=== PATIENT | female | born 1945 ===

== ENCOUNTER 2019-05-07 13:53 | Emergency (ER) | payer OTHER ==
[~2019-05-07] VITALS: Ht 152.4 cm; Wt 82.6 kg
[~2019-05-07 13:53] MED LIST: BIOTIN1 MG PO; CRESTOR5 MG PO
[2019-05-07] MEDS ORDERED: COZAAR25 MG (14:22)
[2019-05-07] MEDS ORDERED: NEURONTIN600 M1 (14:22)
[2019-05-07] MEDS ORDERED: ASPIR 8181 MG (14:22)
== END 2019-05-07 21:53 | disposition home or self-care (01) ==
LOC: ER 13:53
DX: K57.90 Diverticulosis of intestine, part unspecified, without perforation or abscess without bleeding (principal); R30.0 Dysuria

== ENCOUNTER 2020-01-24 13:32 | Outpatient (CLI) | payer OTHER ==
[~2020-01-24 13:32] MED LIST changes: +ASPIR 8181 MG; +COZAAR25 MG; +NEURONTIN600 M1
== END 2020-01-24 13:36 | disposition home or self-care (01) ==
LOC: RAD 13:32
PROVIDERS: ATTEND Ophthalmology
DX: Z01.811 Encounter for preprocedural respiratory examination (principal)

== ENCOUNTER 2020-11-03 08:06 | Outpatient (CLI) | payer OTHER | END 2020-11-03 08:11 | disposition home or self-care (01) | LOC: SONOGRAMA 08:06 → RX STUDY 09:15 → MAMO-SONO 09:45 | PROVIDERS: ATTEND Otolaryngology | DX: E04.1 Nontoxic single thyroid nodule (principal) ==

== ENCOUNTER 2020-11-08 08:55 | Outpatient (CLI) | payer OTHER | END 2020-11-08 09:03 | disposition home or self-care (01) | LOC: RX STUDY 08:55 | PROVIDERS: ATTEND Physical Medicine & Rehabilitation | DX: K22.8 Other specified diseases of esophagus (principal); R13.13 Dysphagia, pharyngeal phase ==

== ENCOUNTER → 2021-06-28 | Outpatient (CLI) | payer OTHER | END | disposition home or self-care (01) | LOC: RAD 14:40 | PROVIDERS: ATTEND Orthopaedic Surgery | DX: M25.561 Pain in right knee (principal) ==